=== PATIENT | female | born 1980 | race African-American/Black ===

== ENCOUNTER 2018-08-24 20:04 | Emergency (ER) | payer OTHER ==
[~2018-08-24] VITALS: Ht 142.2 cm; Wt 59.0 kg
[2018-08-24] MEDS ORDERED: PAXIL10 MG PO (20:20)
[2018-08-24] MEDS ORDERED: IBUPROFEN 600600 M1 PO (20:56)
[2018-08-24 21:19] VITALS: BP 122/60
== END 2018-08-24 21:19 | disposition home or self-care (01) ==
LOC: M.ERS 20:04
DX: S50.11XA Contusion of right forearm, initial encounter (principal); F32.9 Major depressive disorder, single episode, unspecified; X50.0XXA Overexertion from strenuous movement or load, initial encounter; Y93.89 Activity, other specified; Y92.89 Other specified places as the place of occurrence of the external cause; Y99.8 Other external cause status

== ENCOUNTER 2018-12-02 16:27 | Emergency (ER) | payer OTHER ==
[~2018-12-02] VITALS: Ht 142.2 cm; Wt 63.5 kg
[~2018-12-02 16:27] MED LIST: IBUPROFEN 600600 M1 PO; PAXIL10 MG PO
[2018-12-02 17:08] LABS: ABSOLUTE BASOPHILS 0.1 thou/uL (0.0-0.2); ABSOLUTE EOSINOPHILS 0.1 thou/uL (0.0-0.7); ABSOLUTE LYMPHOCYTES 2.7 thou/uL (0.8-5.3); ABSOLUTE MONOCYTES 0.7 thou/uL (0.0-1.2); ABSOLUTE NEUTROPHILS 3.7 thou/uL (1.6-8.1); EOSINOPHILS 1.3 %; HEMATOCRIT 38.2 % (37.0-47.0); HEMOGLOBIN 12.5 gm/dL (12.0-15.0); LYMPHOCYTES 36.8 %; MCHC 32.7 g/dL (28.0-37.0); MCV 70.5 fL (80.0-100.0); MONOCYTES 10.2 %; MPV 9.5 fl. (7.2-11.1); NUCLEATED RBCS 0 /100WBC; PLATELET COUNT* 296 thou/uL (150-400); POLYS 50.7 %; RBC 5.43 mil/uL (4.20-5.00); RDW-CV 16.2 % (10.5-14.5); WBC 7.3 thou/uL (4.0-11.0)
[2018-12-02 17:34] LABS: ALBUMIN 3.7 g/dL (3.4-5.0); CREATININE 0.6 mg/dL (0.6-1.3); POTASSIUM 5.8 mmol/L (3.5-5.1); TOTAL BILIRUBIN 0.4 mg/dL (<0.1-1.0); TOTAL PROTEIN 7.5 g/dL (6.4-8.2)
[2018-12-02 17:51] LABS: CALCIUM 9.1 mg/dL (8.5-10.1)
[2018-12-02] MEDS ORDERED: PREDNISONE 20 M20 M1 PO (18:10)
[2018-12-02 18:15] LABS: ESR (SEDRATE) 3 mm/hr (0-20)
[2018-12-02 18:16] VITALS: BP 111/71
[2018-12-02 18:22] LABS: PLATELET ESTIMATE ADEQUATE
[2018-12-02 18:23] LABS: HYPOCHROMASIA Occasional; MICROCYTES 2+
[2018-12-02 18:24] LABS: ANISOCYTOSIS Occasional; TEARDROPS Occasional
== END 2018-12-02 18:17 | disposition home or self-care (01) ==
LOC: M.ERS 16:27
PROVIDERS: Nurse Practitioner Family
DX: M25.50 Pain in unspecified joint (principal); R71.8 Other abnormality of red blood cells; M19.90 Unspecified osteoarthritis, unspecified site; J45.909 Unspecified asthma, uncomplicated; F41.9 Anxiety disorder, unspecified; F32.9 Major depressive disorder, single episode, unspecified

== ENCOUNTER 2019-05-16 09:37 | Emergency (ER) | payer OTHER ==
[~2019-05-16] VITALS: Ht 142.2 cm; Wt 63.5 kg
[~2019-05-16 09:37] MED LIST changes: +PREDNISONE 20 M20 M1 PO
[2019-05-16] MEDS ORDERED: PROAIR HFA8.5 GM INH (09:51)
[2019-05-16 10:20] LABS: INFLUENZA A ANTIGEN Negative (Negative); INFLUENZA B ANTIGEN Negative (Negative)
[2019-05-16] MEDS ORDERED: PROMETHAZINE HC25 M1 PO (10:28)
[2019-05-16 10:40] VITALS: BP 122/70
== END 2019-05-16 10:40 | disposition home or self-care (01) ==
LOC: M.ERS 09:37
PROVIDERS: Personal Emergency Response Attendant
DX: A08.4 Viral intestinal infection, unspecified (principal); J45.909 Unspecified asthma, uncomplicated